=== PATIENT | female | born 1935 | race Caucasian/White ===

== ENCOUNTER 2016-08-25 10:31 | Emergency (ER) | payer MEDICARE, BC ==
--- NOTE | ~2016-08-25 | CR181 ---
[facility] A Service of [facility] RADIOLOGY TEXT RESULTS PATIENT: JAMIE PETERSON LOCATION: [facility] : 34 UNIT #: [id number] AGE: [address]: Mike Hwang MD SEX: F ORDER DR: [id number] [facility] [address] [place], [place] [address] [id number] E MR#: [id number] Acc #: [id number] NAME: JAMIE PETERSON : 1935 SEX: F STUDY DATE/TIME: 08/25/2016 11:32 UNIT: [facility] ROOM: STUDY DESCRIPTION: CR Lumbar Spine 2 or 3 Views Attending Physician: Mike Hwang M.D. Referring Physician: Chris Rodney M.D. Ordering Physician: Duke Andrew M.D. Primary Care Physician: Jesus Mora M.D. MEDICAL IMAGING REPORT This report is preliminary unless electronic signature is present EXAM Lumbar spine series. DATE OF EXAM 08/25/2016 HISTORY 81-year-old female in the ED complaining of low back pain radiating into the left hip. Symptoms present for about 7 weeks. TECHNIQUE 3 view lumbar spine series. FINDINGS The exam shows moderate chronic compression fracture deformity involving the L2 vertebral body. Remaining lumbar vertebrae are negative with no evidence of acute or chronic fracture. Mild degenerative disc space narrowing at L1-2 and L2-3. Mild lower lumbar degenerative facet arthropathy. Lumbar vertebral alignment is normal. IMPRESSION 1. Moderate chronic-appearing compression fracture deformity at L2. 2. No acute osseous abnormalities demonstrated. 3. Mild degenerative disc space changes at L1-2 and L2-3. Dictated by... Theo Cheney M.D. THIS IS AN ELECTRONICALLY VERIFIED REPORT Theo Cheney M.D. at 08/26/2016 5:55 AM HADLEY/aundrea TD: 08/25/2016 15:11 [facility] A Service of [facility] RADIOLOGY TEXT RESULTS PATIENT: JAMIE PETERSON [id number] 34 UNIT #: [id number] AGE: [address]: Mike Hwang MD SEX: F ORDER DR: JOB #: [id number] MEDICAL IMAGING REPORT COPY
[~2016-08-25 10:31] MED LIST: ADVAIR 250-501 EACH IN; ADVAIR INH; ALBUTEROL17 GM INH; AMLODIPINE BESYL5 MG PO; CALCIUM + D 6001 TA1 PO; CRESTOR5 MG PO; DARVOCET-N 1001 TAB PO; FOSAMAX PO; POSTURE600 MG PO; PREDNISONE PO; PREDNISONE5 M1 PO; PROVENTIL; TRAMADOL HCL50 M1 PO; TRILIPIX135 MG PO; VITAMIN D 4001 UDTAB PO; VITAMIN D31000 UNIT PO
[2016-08-25 11:59] LABS: URINE SOURCE CLEAN CATCH
[2016-08-25 12:05] LABS: URINE APPEARANCE CLEAR; URINE BILIRUBIN NEG (NEG); URINE BLOOD NEG (NEG); URINE COLOR YELLOW; URINE GLUCOSE NEG (NEG); URINE KETONE NEG (NEG); URINE LEUKOCYTE ESTERASE NEG (NEG); URINE NITRATE NEG (NEG); URINE PROTEIN NEG (NEG); URINE SPECIFIC GRAVITY 1.013 (1.003-1.035)
[2016-08-25 12:14] LABS: CULTURE INDICATED? NO
== END 2016-08-25 12:40 | disposition home or self-care (01) ==
LOC: CED 10:31
PROVIDERS: Emergency Medicine
DX: M48.56XA Collapsed vertebra, not elsewhere classified, lumbar region, initial encounter for fracture (principal); J45.909 Unspecified asthma, uncomplicated; I10 Essential (primary) hypertension; Z85.038 Personal history of other malignant neoplasm of large intestine; E78.5 Hyperlipidemia, unspecified; Z88.0 Allergy status to penicillin; Z88.2 Allergy status to sulfonamides; Z88.5 Allergy status to narcotic agent; Z88.8 Allergy status to other drugs, medicaments and biological substances
CPT/HCPCS: 72100; 81003; 99283

== ENCOUNTER → 2016-09-10 | Outpatient (CLI) | payer MEDICARE, BC ==
[~2016-09-10] MED LIST changes: +ALBUTEROL MININEB INH; +DIAZEPAM2 MG PO; +HYDROCODON-ACE1 EAC7 PO; +NORVASC PO; +PATIENT'S PHARMACY; +TRAVATAN Z5 ML OU; +TRUSOPT5 ML OS
--- NOTE | ~2016-09-10 | NM8 ---
[facility] A Service of [facility] & [facility] RADIOLOGY TEXT RESULTS PATIENT: JAMIE PETERSON LOCATION: [facility] : 34 UNIT #: [id number] AGE: [address]: Jesus Mora MD SEX: F ORDER DR: [id number] [facility] [address] [place], [place] [address] [id number] O MR#: [id number] Acc #: [id number] NAME: JAMIE PETERSON : 1935 SEX: F STUDY DATE/TIME: 09/10/2016 13:08 UNIT: [facility] ROOM: STUDY DESCRIPTION: NM Bone or Joint Whole Body Attending Physician: Jesus Mora M.D. Referring Physician: Jesus Mora M.D. Ordering Physician: Jesus Mora M.D. Primary Care Physician: Jesus Mora M.D. MEDICAL IMAGING REPORT This report is preliminary unless electronic signature is present EXAM Whole-body bone scan HISTORY 81-year-old female low back pain for 2 months. Remote history of colon cancer. COMPARISON CT abdomen and pelvis 12/01/2012 and lumbar spine films 08/25/2016. FINDINGS Whole-body and selected spot images were performed of the axial and appendicular skeleton following intravenous administration 24 mCi technetium 99m MDP. Examination demonstrates marked increased uptake within the L2 vertebral body corresponding to the patient's L2 compression fracture as noted on the radiographs of August 2016. This clearly represents a new fracture from the November 2012 CT scan. No other areas of abnormal uptake are identified to suggest additional fractures. Uptake within the remainder of the axial and appendicular skeleton appears symmetric. Bilateral renal activity and normal bladder activity noted. IMPRESSION Focally intense uptake at the L2 vertebral body corresponding to a biconcave L2 compression fracture. Dictated by... Anisa Barillas M.D. THIS IS AN ELECTRONICALLY VERIFIED REPORT Anisa Barillas M.D. at 09/12/2016 2:04 PM AB/jamie TD: 09/12/2016 06:41 [facility]. [facility] A Service of [facility] & [facility] RADIOLOGY TEXT RESULTS PATIENT: JAMIE PETERSON LOCATION: [facility] : 34 UNIT #: [id number] AGE: [address]: Jesus Mora MD SEX: F ORDER DR: JOB #: [id number] MEDICAL IMAGING REPORT COPY
== END | disposition home or self-care (01) ==
LOC: CNUC 09:14
DX: M51.37 Other intervertebral disc degeneration, lumbosacral region (principal); S32.029A Unspecified fracture of second lumbar vertebra, initial encounter for closed fracture; M54.5 Low back pain
CPT/HCPCS: 78306; A9503

== ENCOUNTER 2016-12-21 09:49 | Inpatient (IN) | payer MEDICARE, BC ==
--- NOTE | ~2016-12-21 | EKG ---
PATIENT: JAMIE PETERSON UNIT #: [id number] Ventricular Rate: 94 BPM Atrial Rate: 94 BPM P-R Interval: 102 ms QRS Duration: 64 ms Q-T Interval: 362 ms QTC Calculation(Bezet): 452 ms P [place]: 78 degrees Calculated R [place]: 76 degrees Calculated T [place]: 42 degrees Diagnosis Line: Sinus rhythm with short MT Diagnosis Line: Nonspecific ST and T wave abnormality Diagnosis Line: Abnormal ECG Diagnosis Line: When compared with ECG of 05-NOV-2011 11:11, Diagnosis Line: Nonspecific T wave abnormality now evident in Diagnosis Line: Inferior leads Diagnosis Line: Confirmed by DANISHA JOEL MD ([id number]) on Diagnosis Line: 12/22/2016 2:57:08 PM INTERPRETING : ELVA
--- NOTE | ~2016-12-21 | CR72 ---
[facility] A Service of [facility] RADIOLOGY TEXT RESULTS PATIENT: JAMIE PETERSON LOCATION: [place] [address] : 34 UNIT #: [id number] AGE: [address]: Emelia Joyner MD SEX: F ORDER DR: [id number] [facility] [address] [place], [place] [address] [id number] E MR#: [id number] Acc #: [id number] NAME: JAMIE PETERSON : 1935 SEX: F STUDY DATE/TIME: 12/21/2016 10:39 UNIT: [facility] ROOM: STUDY DESCRIPTION: CR Chest Single View Portable Attending Physician: Emilia Lind M.D. Ordering Physician: Emilia Lind M.D. Primary Care Physician: Jesus Mora M.D. MEDICAL IMAGING REPORT This report is preliminary unless electronic signature is present EXAM AP portable chest 12/21/2016 at 10:39 HISTORY 81-year-old female with right lower extremity pain after falling this morning. Preoperative evaluation. History of colon cancer, hypertension and asthma. COMPARISON PA and lateral chest radiograph 01/17/2015. FINDINGS Lungs are hyperinflated and emphysematous. Biapical pleural parenchymal thickening or scarring has a similar appears to prior exam. Reticular interstitial type thickening is seen predominately in the upper lung zones and appears slightly increased since the prior exam. There does appear to be mild bronchial wall thickening in the bilateral lungs. No pleural effusion. No pneumothorax. Osteopenia. IMPRESSION 1. Features of emphysema with chronic-appearing biapical pleural parenchymal scarring or fibrosis. 2. Interstitial markings predominantly in the upper lung zones appear increased since 01/17/2015, may represent evolving fibrosis. No focal lung consolidations are identified. Dictated by... Jacquelyn Stroud M.D. THIS IS AN ELECTRONICALLY VERIFIED REPORT Jacquelyn Stroud M.D. at 12/24/2016 8:36 AM [facility] A Service of [facility] RADIOLOGY TEXT RESULTS PATIENT: JAMIE PETERSON LOCATION: [facility] : 34 UNIT #: [id number] AGE: [address]: Emelia Joyner MD SEX: F ORDER DR: TRISHA/deloris TD: 12/21/2016 14:49 JOB #: [id number] MEDICAL IMAGING REPORT Page 1 of 1 COPY
--- NOTE | ~2016-12-21 | CR173 ---
[facility]. [facility] A Service of [facility] RADIOLOGY TEXT RESULTS PATIENT: JAMIE PETERSON LOCATION: [place] [address] : 34 UNIT #: [id number] AGE: [address]: Emelia Joyner MD SEX: F ORDER DR: [id number] [facility] [address] [place], [place] [address] [id number] E MR#: [id number] Acc #: [id number] NAME: JAMIE PETERSON : 1935 SEX: F STUDY DATE/TIME: 12/21/2016 10:49 UNIT: [facility] ROOM: STUDY DESCRIPTION: CR Knee 3 Views Rt Attending Physician: Emilia Lind M.D. Ordering Physician: Emilia Lind M.D. Primary Care Physician: Jesus Mora M.D. MEDICAL IMAGING REPORT This report is preliminary unless electronic signature is present EXAM Right knee 3 views INDICATIONS Right knee pain after falling today. No comparisons. FINDINGS The alignment is normal. No joint effusion. Osteopenia. No fracture. IMPRESSION Osteopenia. No acute finding. Dictated by... Paco Barillas M.D. THIS IS AN ELECTRONICALLY VERIFIED REPORT Paco Barillas M.D. at 12/24/2016 7:32 AM VENKATA/amor TD: 12/21/2016 14:45 JOB #: [id number] MEDICAL IMAGING REPORT Page 1 of 1 COPY
--- NOTE | ~2016-12-21 | CR21 ---
[facility] A Service of [facility] & [facility] RADIOLOGY TEXT RESULTS PATIENT: JAMIE PETERSON LOCATION: [place] [address] : 34 UNIT #: [id number] AGE: [address]: Emelia Joyner MD SEX: F ORDER DR: [id number] [facility] [address] [place], [place] [address] [id number] E MR#: [id number] Acc #: [id number] NAME: JAMIE PETERSON : 1935 SEX: F STUDY DATE/TIME: 12/21/2016 10:46 UNIT: [facility] ROOM: STUDY DESCRIPTION: CR Ankle Min 3 Views Rt Attending Physician: Emilia Lind M.D. Ordering Physician: Emilia Lind M.D. Primary Care Physician: Jesus Mora M.D. MEDICAL IMAGING REPORT This report is preliminary unless electronic signature is present EXAM Right ankle 3 views INDICATION Right ankle pain today. Trauma. COMPARISON No comparisons. FINDINGS Osteopenia. No evidence for fracture. No dislocation. Soft tissue structures are unremarkable. IMPRESSION Osteopenia. No evidence for fracture. Dictated by... Paco Barillas M.D. THIS IS AN ELECTRONICALLY VERIFIED REPORT Paco Barillas M.D. at 12/24/2016 7:32 AM Adrienne TD: 12/21/2016 14:42 JOB #: [id number] MEDICAL IMAGING REPORT Page 1 of 1 COPY
--- NOTE | ~2016-12-21 | CT107 ---
[facility] A Service [facility] RADIOLOGY TEXT RESULTS PATIENT: JAMIE PETERSON LOCATION: [facility] : 34 UNIT #: [id number] AGE: [address]: Emelia Joyner MD SEX: F ORDER DR: [id number] [place] [id number] [facility]. [place], [place] [address] [id number] I MR#: [id number] Acc #: [id number] NAME: JAMIE PETERSON : 1935 SEX: F STUDY DATE/TIME: 12/21/2016 15:14 UNIT: [facility] ROOM: [facility] STUDY DESCRIPTION: CT Pelvis Wo Cont Attending Physician: Julita Lua M.D. Ordering Physician: Emilia Lind M.D. Primary Care Physician: Jesus Mora M.D. MEDICAL IMAGING REPORT This report is preliminary unless electronic signature is present EXAM CT of the pelvis without contrast. HISTORY Right hip pain status post fall. A 1-day duration. TECHNIQUE Coronal and sagittal reconstructions were obtained. This CT exam was performed with one or more of the following radiation dose reduction techniques: automatic exposure control, adjustment of mA and/or kV according to patient size, and iterative reconstruction. COMPARISON Right hip radiograph dated 12/21/2016. FINDINGS There is a nondisplaced fracture involving the greater trochanter. The transverse fracture does not appear to extend into the femoral neck. No additional fractures are identified. There is some degenerative changes in both hips. Generalized osteopenia. There is some colonic diverticulosis. No diverticulitis. No enlarged pelvic or inguinal lymph nodes. IMPRESSION Nondisplaced transverse fracture through the greater trochanter of the right proximal femur. Dictated by... [facility] A Service [facility] RADIOLOGY TEXT RESULTS PATIENT: JAMIE PETERSON LOCATION: [facility] : 34 UNIT #: [id number] AGE: [address]: Emelia Joyner MD SEX: F ORDER DR: Santiago Fontenot M.D. THIS IS AN ELECTRONICALLY VERIFIED REPORT Santiago Fontenot M.D. at 12/24/2016 3:01 PM MAHAMED/james TD: 12/21/2016 22:40 JOB #: [id number] MEDICAL IMAGING REPORT Page 1 of 1 COPY
--- NOTE | ~2016-12-21 | HP ---
Unit #: [id number] #: [id number] Patient: JAMIE PETERSON [id number] [address] [place], [place] [address] [id number] I MR#: [id number] NAME: JAMIE PETERSON ROOM: [facility] Age: 81 Sex: F Admission Date: 12/21/2016 : 1935 Attending Physician: Julita Lua M.D. Primary Care Physician: Jesus Mora M.D. HISTORY AND PHYSICAL CHIEF COMPLAINT Fall, right hip pain. HISTORY OF PRESENT ILLNESS The patient is an 81-year-old female with past medical history of hyperlipidemia, colon cancer, asthma, who presented to the emergency department for evaluation of the above. The patient states that she was in her usual state of health until the morning of admission when she fell. She states that the fall occurred around 4:45. She states that she was trying to turn on a light and "lost balance." She does not think she hit her head. No loss of consciousness. She scooted to a chair and ultimately to the bathroom. She then got back in bed, went to sleep and woke up around 8 a.m. with persistent right hip pain. She was brought to the emergency department for further evaluation. In the emergency department, CT of the right hip showed a fracture involving the right greater trochanter. A right tibia fibula x-ray showed possible buckle injury involving the right tibia. She was given 2 mg of morphine as well as 4 mg of Zofran. She is being admitted to [facility] for evaluation and further treatment. PAST MEDICAL HISTORY 1. Admission to [facility] 09/08 through 09/10/2005 for acute bronchitis. 2. Asthma, not on home oxygen and not followed by a airveyor operator. 3. Colon cancer, status post right hemicolectomy. The patient has not had radiation or chemotherapy. 4. Hyperlipidemia. PAST SURGICAL HISTORY 1. Right hemicolectomy. 2. Eye surgery. ALLERGIES 1. Penicillin. 2. Sulfa. 3. Statins. 4. Codeine. 5. Gemfibrozil. 6. Mushrooms. HOME MEDICATIONS 1. Albuterol two puffs t.i.d. Unit #: [id number] #: [id number] Patient: JAMIE PETERSON 2. Travatan eye drops h.s. 3. Dorzolamide eye drops t.i.d. 4. Norvasc 5 mg daily. 5. Hydrocodone/acetaminophen 5/325 b.i.d. p.r.n. 6. Diazepam 2 mg t.i.d. p.r.n. SOCIAL HISTORY The patient lives alone. She has no children. Her only relative is a cousin. She has a cane. She denies tobacco or alcohol use. Her CODE STATUS is a DO NOT RESUSCITATE. FAMILY HISTORY Notable for her mother having asthma. Her father of a myocardial infarction at the age of 56. REVIEW OF SYSTEMS A complete review of systems is negative except as indicated in the HPI. The patient states that she has maintained her weight. PHYSICAL EXAMINATION VITAL SIGNS: Temperature 98.1, pulse 99, respirations 16, blood pressure 144/58, oxygen saturation 99% on room air. GENERAL: The patient is a frail-appearing female in no acute distress. HEENT: Head is atraumatic. Mucous membranes are moist. NECK: Supple. Trachea is midline. LUNGS: Clear to auscultation bilaterally with no increased work of breathing. HEART: Regular rate and rhythm. ABDOMEN: Soft, nontender. Bowel sounds present in all four quadrants. EXTREMITIES: Right hip is tender to palpation. She has decreased range of motion of the right lower extremity secondary to pain. There is no pedal edema. NEUROLOGIC: Patient is awake and alert. She follows commands. PSYCHIATRIC: Mood and affect are normal. Patient is cooperative. SKIN OF EXAMINED AREAS: Warm and dry. DIAGNOSTIC STUDIES LABORATORY: Comprehensive metabolic panel is completely normal. INR is 1. Complete blood count is notable for white blood cell count of 12.5. IMAGING: Right tibia fibula x-ray shows subtle cortical irregularity of the posterior margin of the distal right tibia concerning for possible nondisplaced cortical buckle injury. Right hip x-ray shows no acute findings. Right femur x-ray shows on fracture. Chest x-ray shows features of emphysema. Right knee x-ray shows no acute findings. Right ankle x-ray shows osteopenia but no fracture. CT of the right hip shows a fracture of the right greater trochanter. CARDIOVASCULAR: EKG shows sinus rhythm with a short MS at a rate of 94 Unit #: [id number] #: [id number] Patient: JAMIE PETERSON beats per minute. ST depression is noted in lateral leads. ASSESSMENT The patient is an 81-year-old female with: 1. Fracture of the right greater trochanter. The patient is low risk for surgery based on the information available. She has never had a stress test, never had a cardiac catheterization. There is no echocardiogram in [facility]. Her EKG does show ST depression in lateral leads. She denies any chest pain. 2. Cortical irregularity of the right tibia concerning for possible buckle injury. 3. Status post fall. 4. Leukocytosis, likely stress related. 5. History of colon cancer, status post partial hemicolectomy. 6. Hyperlipidemia. 7. Asthma. 8. Hypertension. 9. Malnutrition with a BMI of 13. PLAN 1. Admit to intermediate level. 2. Regular diet. 3. N.p.o. after midnight for possible surgical intervention. 4. Consult Dr. Lord regarding fracture of the right greater trochanter as well as cortical irregularity of the right tibia. 5. P.r.n. morphine. 6. P.r.n. Zofran. 7. Bedrest. 8. Fall precautions. 9. Melchor catheter. 10. Urinalysis. 11. Consult Dr. Morrison for cardiac clearance. 12. Check urinalysis. 13. CPK on blood in the lab. 14. Supplemental oxygen. 15. Repeat labs in the morning. 16. Regarding CODE STATUS, the patient is a DO NOT RESUSCITATE. Dictated by Julita Lua M.D. DILEEP/makenzie TD: 12/21/2016 20:32 JOB #: [id number] Unit #: [id number] #: [id number] Patient: JAMIE PETERSON HISTORY AND PHYSICAL Page 1 of 1 X Julita Lua MD HISTORY AND PHYSICAL
--- NOTE | ~2016-12-21 | CR107 ---
[facility] A Service of [facility] RADIOLOGY TEXT RESULTS PATIENT: JAMIE PETERSON LOCATION: [place] [address] : 34 UNIT #: [id number] AGE: [address]: Emelia Joyner MD SEX: F ORDER DR: [id number] [facility] [address] [place], [place] [address] [id number] E MR#: [id number] Acc #: [id number] NAME: JAMIE PETERSON : 1935 SEX: F STUDY DATE/TIME: 12/21/2016 10:43 UNIT: [facility] ROOM: STUDY DESCRIPTION: CR Femur 2 Views Rt Attending Physician: Emilia Lind M.D. Ordering Physician: Emilia Lind M.D. Primary Care Physician: Jessu Mora M.D. MEDICAL IMAGING REPORT This report is preliminary unless electronic signature is present EXAM Right femur, 2 views. INDICATIONS Right femur pain today after falling. COMPARISON No comparisons. FINDINGS Osteopenia. No evidence for fracture or dislocation. Vascular calcifications. IMPRESSION No fracture or dislocation. Dictated by... Paco Barillas M.D. THIS IS AN ELECTRONICALLY VERIFIED REPORT Paco Barillas M.D. at 12/24/2016 7:32 AM Dayana TD: 12/21/2016 14:55 JOB #: [id number] MEDICAL IMAGING REPORT Page 1 of 1 COPY
--- NOTE | ~2016-12-21 | DS ---
Unit #: [id number] #: [id number] Patient: JAMIE PETERSON [id number] [place] [id number] [facility]. [place], [place] [address] [id number] I MR#: [id number] NAME: JAMIE PETERSON ROOM: 470 Age: 81 Sex: F Admission Date: 12/21/2016 : 1935 Discharge Date: 12/24/2016 Attending Physician: Emelia Joyner M.D. Primary Care Physician: Jesus Mora M.D. DISCHARGE SUMMARY ADMISSION DIAGNOSIS Right hip fracture. DISCHARGE DIAGNOSES 1. Right greater trochanteric fracture, nondisplaced. 2. Bronchial asthma. 3. History of colon cancer, status post right hemicolectomy. 4. Hyperlipidemia. 5. Hypertension. 6. Anxiety disorder. CONSULTANTS Dr. Lord in orthopedic consultation. DIAGNOSTIC DATA LABORATORY: Creatinine 0.8, sodium 132, potassium 4.3. White blood cell count 7.5, hemoglobin 10.6, platelet count 189. Urinalysis was negative. Blood culture did not reveal any growth. IMAGING: Chest x-ray did not reveal any acute findings. The patient has increased interstitial markings, which may represent evolving fibrosis. Right ankle x-ray revealed osteopenia. No evidence of fracture. Right knee x-ray revealed osteopenia. No fracture. Right femur x-ray did not reveal any fracture. Right tibia and fibula x-ray revealed no discrete fracture line. Right hip x-ray did not reveal any acute findings. CT scan of the pelvis was done, which revealed nondisplaced transverse fracture through the greater trochanter right proximal femur. HOSPITAL COURSE The patient is an 81-year-old female who was admitted to [facility] with right hip pain. Details are as per admission history and physical. The patient's x-ray was negative for fracture, but CT scan of the pelvis revealed right greater trochanter fracture. The patient was seen by Dr. Porter in consultation, who stated that the patient does not need any surgery. Also, he advised weightbearing as tolerated with a walker. Unit #: [id number] #: [id number] Patient: JAMIE PETERSON PHYSICAL EXAMINATION GENERAL: Today the patient is comfortable and is not in any acute distress. She wants to go to rehab. VITALS: Temperature 97.8, pulse 93 per minute, respiratory rate 16 per minute, blood pressure 114/43. HEENT: No conjunctival congestion. Sclerae nonicteric. NECK: Supple. Trachea central. RESPIRATORY: Decreased breath sounds bilaterally. There are no wheezes or crackles. HEART: Regular rate and rhythm. S1 and S2. ABDOMEN: Soft, nontender, bowel sounds present in all four quadrants. EXTREMITIES: Trace pedal edema. SKIN: Warm and dry. DISCHARGE CONDITION Stable. ACTIVITY As tolerated. DISCHARGE MEDICATIONS 1. Albuterol MDI 2 puffs t.i.d. 2. Norvasc 5 mg p.o. daily. 3. Travatan eyedrops 1 drop at nighttime. 4. Trusopt 1 drop t.i.d. 5. Hydrocodone 5 mg 1 p.o. q.4 h. p.r.n. pain. DISPOSITION The patient will be transferred to senior living unit. FOLLOWUP The patient will follow up with Dr. Lord in two weeks. A prescription for hydrocodone was written. Than plan has been discussed with the patient's family. Dictated by... Annika Chong/kasi TD: 12/24/2016 12:12 JOB #: [id number] CC: Annika Whitt M.D. Unit #: [id number] #: [id number] Patient: JAMIE PETERSON DMITRIY DISCHARGE SUMMARY Page 1 of 1 X Emelia Joyner MD X DISCHARGE SUMMARY
--- NOTE | ~2016-12-21 | CR253 ---
[facility] A Service of [facility] RADIOLOGY TEXT RESULTS PATIENT: JAMIE PETERSON LOCATION: [place] [address] : 34 UNIT #: [id number] AGE: [address]: Emelia Joyner MD SEX: F ORDER DR: [id number] [facility] [address] [facility] [place] [facility]. [place], [place] [address] [id number] E MR#: [id number] Acc #: [id number] NAME: JAMIE PETERSON : 1935 SEX: F STUDY DATE/TIME: 12/21/2016 10:45 UNIT: [facility] ROOM: STUDY DESCRIPTION: CR Tibia and Fibula 2 Views Rt Attending Physician: Emilia Lind M.D. Ordering Physician: Emilia Lind M.D. Primary Care Physician: Jesus Mora M.D. MEDICAL IMAGING REPORT This report is preliminary unless electronic signature is present EXAM 2 views of the right tibia and fibula 12/21/2016 HISTORY Right lower extremity pain after falling this morning. History of colon cancer. COMPARISON None. FINDINGS There is subtle cortical irregularity involving the posterior margin of the distal right tibial metaphysis which could represent a nondisplaced fracture. No discrete or lucent fracture line is seen at this location, however. The knee and ankle joints appear appropriately aligned. Benign cystic changes seen within the lateral malleolus. Advanced osteopenia. IMPRESSION 1. Subtle cortical irregularity of the posterior margin of the distal right tibial diametaphysis could represent subtle nondisplaced cortical buckle injury. No discrete fracture line is visible, however. Please correlate to the site of patient's pain. 2. Normal alignment of the knee and ankle joints. 3. Osteopenia. Dictated by... Jacquelyn Stroud M.D. THIS IS AN ELECTRONICALLY VERIFIED REPORT Jacquelyn Stroud M.D. at 12/24/2016 8:36 AM LL/deloris [facility] A Service [facility] RADIOLOGY TEXT RESULTS PATIENT: JAMIE PETERSON LOCATION: [facility] 470- : 34 UNIT #: [id number] AGE: [address]: Emelia Joyner MD SEX: F ORDER DR: TD: 12/21/2016 14:55 JOB #: [id number] MEDICAL IMAGING REPORT Page 1 of 1 COPY
--- NOTE | ~2016-12-21 | CR151 ---
[facility] A Service of [facility] RADIOLOGY TEXT RESULTS PATIENT: JAMIE PETERSON LOCATION: [facility] 470-01 : 34 UNIT #: [id number] AGE: [address]: Emelia Joyner MD SEX: F ORDER DR: [id number] [facility] [address] [facility]. [place], [place] [address] [id number] E MR#: [id number] Acc #: [id number] NAME: JAMIE PETERSON : 1935 SEX: F STUDY DATE/TIME: 12/21/2016 10:41 UNIT: [facility] ROOM: STUDY DESCRIPTION: CR Hip Min 2 Views Rt Attending Physician: Emilia Lind M.D. Ordering Physician: Emilia Lind M.D. Primary Care Physician: Jesus Mora M.D. MEDICAL IMAGING REPORT This report is preliminary unless electronic signature is present EXAM AP pelvis with frog view right hip (2 images). DATE: 12/21/2016 HISTORY Fell this morning with right lower extremity pain. COMPARISON AP pelvis 01/17/2015 FINDINGS No acute pelvic fracture, hip fracture or hip dislocation is seen. There is mild asymmetric bilateral hip joint space narrowing without significant osteophyte formation. No sacroiliac joint or pubic symphysis diastasis is seen. Osteopenic changes are present. Chain sutures are seen within the right lower abdomen. Presumed granulomatous changes within the imaged liver. IMPRESSION 1. No acute findings within the pelvis or right hip. 2. Mild but symmetric bilateral hip joint space narrowing. Dictated by... Jacquelyn Stroud M.D. THIS IS AN ELECTRONICALLY VERIFIED REPORT Jacquelyn Stroud M.D. at 12/24/2016 8:36 AM LL/amor TD: 12/21/2016 15:01 JOB #: [id number] [facility] A Service of [facility] RADIOLOGY TEXT RESULTS PATIENT: JAMIE PETERSON LOCATION: [facility] 470-01 : 34 UNIT #: [id number] AGE: [address]: Emelia Joyner MD SEX: F ORDER DR: MEDICAL IMAGING REPORT Page 1 of 1 COPY
--- NOTE | ~2016-12-21 | A ---
[facility] Nutrition Therapy DATE: 12/22/16 Patient: JAMIE PETERSON Physician: MO Address: [address] [place] [address] Room/Bed: [address] [place] [address], Zip: [place] [address] Admit Date: 12/21/16 Date of : 34 Height: 5 0 Weight: 70 31.75 NUTRITIONAL ASSESSMENT: REASON: Low BMI 81 yo female admitted for fall and right hip pain PMH: HLD, colon cancer s/p right marco-colectomy, asthma Anthropometrics: Ht: 4'11" Wt: 31.75 kg bmi: 13.7 IBW: 45.4 kg, 70% IBW Labs: Na+ 134 K+ 5.2 Cl- 98 Alb 3.3 Meds: Zofran, NaCl I/O & Bowel function: 0/200, last BM 12/21 Skin Integrity: Discolored BUE Scab right hyman Left great toe blanchable redness Edema: noone noted Estimated Nutrition Needs: Increased due to low body weight Diet: Regular Assessment: Chart reviewed, events noted. RD spoke with the pt at bedside regarding her low body weight. Pt reports that she has always been 65-70#. Pt states that she was 5'0"; however, she has likely "shrank". Pt has a small body frame, likely short than 5'0" per RD observation. Pt and RN both report that she has had a great appetite, and consumes 100% of her meals. Pt does not like Ensure supplements, but is agreeable to Magic Cup for supplemental nutrition. RD will order. Dx: Underweight RT advanced age, small body frame AEB pt reported UBW of 65-70# and no recent weight loss, 70% IBW, BMI 13.7. Intervention: 1. Continue regular diet 2. Magic Cup BID Monitoring, Evaluation and Goals: 1. Oral intake; tolerate >50-75% of meals and supplements 2. Weight; monitor, promote gradual weight loss [facility] Nutrition Therapy DATE: 12/22/16 Patient: JAMIE PETERSON Physician: MO Address: [address] [place] [address] Room/Bed: [address] [place] [address], Zip: [place] [address] Admit Date: 12/21/16 Date of : 34 Height: 5 0 Weight: 70 31.75 Recommendations: 1. Continue regular diet as tolerated. 2. Magic Cup (vanilla) BID-TID for supplemental nutrition. Pt is at mild nutritional risk. RD will follow hospital course per protocol. Respectfully, NANCI JIMENEZ RD, LD [employer] and [facility] cc: client file
--- NOTE | ~2016-12-21 | CO ---
Unit #: [id number] #: [id number] Patient: JAMIE PETERSON [id number] [place] [id number] [facility]. [place], [place] [address] [id number] MR#: [id number] NAME: JAMIE PETERSON ROOM: 470 Age: 81 Sex: F Admission Date: 12/21/2016 : 1935 Attending Physician: Emelia Joyner M.D. Primary Care Physician: Jesus Mora M.D. Consultation Date: 12/22/2016 CONSULTATION REPORT HISTORY OF PRESENT ILLNESS Ms. Peterson is an 81-year-old lady, who lives at home alone and she fell, she was getting up to go to the restroom, and she is not sure she tripped over something, or just lost her balance. She denies a syncopal or loss of consciousness episode. She landed on her right side, had difficulty getting up, was brought to the emergency room, and x-rays were negative but CT scan shows a nondisplaced fracture in the greater trochanter on the right side. We have been asked to provide orthopedic recommendations. PAST MEDICAL HISTORY Significant for elevated cholesterol. Her medical conditions include asthma and colon cancer. PAST SURGICAL HISTORY She had surgery for her colon cancer about 10 years ago. SOCIAL HISTORY She socially lives at home alone. Denies use of tobacco or alcohol. She has other surgery includes eye surgery. ALLERGIES She has allergies to multiple antibiotics. She cannot use penicillin, sulfa. She cannot take statins, codeine, gemfibrozil, and mushrooms. MEDICATIONS Her only home medications are Valium, Vicodin, Norvasc for her hypertension, Travatan eye drops, albuterol for her asthma, and dorzolamide eye drops. REVIEW OF SYSTEMS A complete 12-system review was performed and is positive only for that in the history of present illness. PHYSICAL EXAMINATION GENERAL: She is alert, awake, and oriented x3. Does not appear to be in any distress. She is afebrile. VITAL SIGNS: Her pulse is 100 and her blood pressure 119/42. ORTHOPEDIC: Her extremities move well. Lower extremities left hip moves well, right hip is tender laterally, and there was some discomfort with range of motion of the hip but not severe. NEUROVASCULAR: Intact. There was no erythema noted. Unit #: [id number] #: [id number] Patient: JAMIE PETERSON DMITRIY IMPRESSION She has an acute nondisplaced greater trochanteric fracture. We will have physical therapy to see her, and she will probably need to go to rehab for a week or so because she lives alone. Dictated by... Annika Ratliff/vicente TD: 12/22/2016 22:22 JOB #: [id number] CONSULTATION REPORT Page 1 of 1 X [place] MD X CONSULTATION REPORT
[~2016-12-21 09:49] MED LIST changes: -ALBUTEROL MININEB INH; -DIAZEPAM2 MG PO; -HYDROCODON-ACE1 EAC7 PO; -NORVASC PO; -PATIENT'S PHARMACY; -TRAVATAN Z5 ML OU; -TRUSOPT5 ML OS
[2016-12-21] MEDS ORDERED: PATIENT'S PHARMACY (11:17)
[2016-12-21] MEDS ORDERED: ALBUTEROL MININEB INH (11:17)
[2016-12-21] MEDS ORDERED: NORVASC PO (11:18)
[2016-12-21] MEDS ORDERED: TRUSOPT5 ML OS (11:18)
[2016-12-21] MEDS ORDERED: TRAVATAN Z5 ML OU (11:18)
[2016-12-21] MEDS ORDERED: DIAZEPAM2 MG PO (11:19)
[2016-12-21] MEDS ORDERED: HYDROCODON-ACE1 EAC7 PO (11:19)
[2016-12-21 11:30] LABS: BASOPHIL# 0.1 X10e3 (0-0.3); BASOPHIL% 0.4 % (0-2.5); EOSINOPHIL# 0.3 X10e3 (0-0.7); EOSINOPHIL% 2.7 % (0.0-7.0); HEMATOCRIT 36.3 % (35.0-45.0); HEMOGLOBIN 11.7 gm/dL (12.0-16.0); LYMPHOCYTE# 1.4 X10e3 (1.0-3.5); LYMPHOCYTE% 11.6 % (17.0-45.0); MEAN CORPUSCULAR HEMOGLOBIN 26.6 PG (28-34); MEAN CORPUSCULAR HGB CONC 32.1 g/dL (30-36); MEAN PLATELET VOLUME 7.7 FL (6.5-11.5); MONOCYTE# 0.9 X10e3 (0-1.0); NEUTROPHIL# 9.8 X10e3 (1.5-7.1); NEUTROPHIL% 78.3 % (40-75); PLATELET COUNT 255 X10e3 (140-420); RED BLOOD COUNT 4.38 X10e (3.90-5.30); RED CELL DISTRIBUTION WIDTH 13.7 % (11.0-15.5); WHITE BLOOD COUNT 12.5 X10e3 (4.0-10.5)
[2016-12-21 11:32] LABS: DIFF IND NO
[2016-12-21 11:49] LABS: PARTIAL THROMBOPLASTIN TIME 22.9 SECONDS (23.5-31.3); PROTHROMBIN TIME (PATIENT) 10.9 SECONDS (10.0-11.7)
[2016-12-21 12:03] LABS: ALBUMIN SERUM 3.7 g/dL (3.5-5.0); BILIRUBIN, DIRECT 0.1 mg/dL (0.0-0.2); BILIRUBIN,INDIRECT 0.4 mg/dL (0.0-0.9); BILIRUBIN,TOTAL 0.5 mg/dL (0.2-2.0); BUN/CREATININE RATIO 12.85; CALCIUM SERUM 8.9 mg/dL (8.4-10.2); CREATININE SERUM 0.7 mg/dL (0.6-1.4); GLOM FILT RATE Estimated 80.7 mL/min (>60); POTASSIUM 4.5 mmol/L (3.5-5.1); PROTEIN TOTAL SERUM 6.7 g/dL (6.0-8.3)
[2016-12-21 18:56] LABS: URINE SOURCE CLEAN CATCH
[2016-12-21 19:05] LABS: URINE APPEARANCE CLEAR; URINE BILIRUBIN NEG (NEG); URINE BLOOD NEG (NEG); URINE COLOR YELLOW; URINE GLUCOSE NEG (NEG); URINE KETONE NEG (NEG); URINE LEUKOCYTE ESTERASE NEG (NEG); URINE NITRATE NEG (NEG); URINE PH 6.5 (5-8); URINE PROTEIN NEG (NEG); URINE SPECIFIC GRAVITY 1.014 (1.003-1.035); URINE UROBILINOGEN 0.2 MG/DL (NEG)
[2016-12-21 19:14] LABS: CULTURE INDICATED? NO
[2016-12-22 07:12] LABS: BASOPHIL% 0.5 % (0-2.5); EOSINOPHIL# 0.3 X10e3 (0-0.7); EOSINOPHIL% 3.8 % (0.0-7.0); HEMATOCRIT 33.3 % (35.0-45.0); HEMOGLOBIN 10.9 gm/dL (12.0-16.0); LYMPHOCYTE# 1.5 X10e3 (1.0-3.5); LYMPHOCYTE% 17.1 % (17.0-45.0); MEAN CORPUSCULAR HEMOGLOBIN 27.1 PG (28-34); MEAN CORPUSCULAR HGB CONC 32.7 g/dL (30-36); MEAN PLATELET VOLUME 7.8 FL (6.5-11.5); MONOCYTE# 0.8 X10e3 (0-1.0); MONOCYTE% 9.3 % (3.0-12.0); NEUTROPHIL# 6.1 X10e3 (1.5-7.1); NEUTROPHIL% 69.3 % (40-75); PLATELET COUNT 219 X10e3 (140-420); RED BLOOD COUNT 4.01 X10e (3.90-5.30); RED CELL DISTRIBUTION WIDTH 13.4 % (11.0-15.5); WHITE BLOOD COUNT 8.8 X10e3 (4.0-10.5)
[2016-12-22 07:18] LABS: DIFF IND NO
[2016-12-22 07:23] LABS: INR 1.1; PROTHROMBIN TIME (PATIENT) 11.4 SECONDS (10.0-11.7)
[2016-12-22 07:46] LABS: ALBUMIN SERUM 3.3 g/dL (3.5-5.0); BILIRUBIN,TOTAL 0.7 mg/dL (0.2-2.0); BUN/CREATININE RATIO 17.5; CALCIUM SERUM 8.4 mg/dL (8.4-10.2); CREATININE SERUM 0.8 mg/dL (0.6-1.4); GLOM FILT RATE Estimated 68.7 mL/min (>60); POTASSIUM 5.2 mmol/L (3.5-5.1); PROTEIN TOTAL SERUM 6.3 g/dL (6.0-8.3)
[2016-12-23 03:18] LABS: HEMATOCRIT 33.7 % (35.0-45.0); HEMOGLOBIN 10.6 gm/dL (12.0-16.0); MEAN CELL VOLUME 84.4 FL (83-96); MEAN CORPUSCULAR HEMOGLOBIN 26.6 PG (28-34); MEAN CORPUSCULAR HGB CONC 31.6 g/dL (30-36); MEAN PLATELET VOLUME 7.9 FL (6.5-11.5); RED BLOOD COUNT 3.99 X10e (3.90-5.30); RED CELL DISTRIBUTION WIDTH 13.7 % (11.0-15.5); WHITE BLOOD COUNT 7.5 X10e3 (4.0-10.5)
[2016-12-23 03:32] LABS: BUN/CREATININE RATIO 18.75; CALCIUM SERUM 8.2 mg/dL (8.4-10.2); CREATININE SERUM 0.8 mg/dL (0.6-1.4); GLOM FILT RATE Estimated 68.7 mL/min (>60); POTASSIUM 4.3 mmol/L (3.5-5.1)
== END 2016-12-24 17:18 | DRG 536 ==
LOC: CED 09:49 → C4C 17:40 → CED 18:56 → C4C 18:56
PROVIDERS: Emergency Medicine; Family Medicine; Internal Medicine
DX: S72.114A Nondisplaced fracture of greater trochanter of right femur, initial encounter for closed fracture (principal); E46 Unspecified protein-calorie malnutrition; Z68.1 Body mass index [BMI] 19.9 or less, adult; W18.30XA Fall on same level, unspecified, initial encounter; Y92.009 Unspecified place in unspecified non-institutional (private) residence as the place of occurrence of the external cause; J45.909 Unspecified asthma, uncomplicated; E78.5 Hyperlipidemia, unspecified; I10 Essential (primary) hypertension; F41.9 Anxiety disorder, unspecified; S89.81XA Other specified injuries of right lower leg, initial encounter; E87.6 Hypokalemia; Z66 Do not resuscitate; Z85.038 Personal history of other malignant neoplasm of large intestine; Z90.49 Acquired absence of other specified parts of digestive tract; Z88.5 Allergy status to narcotic agent; Z88.0 Allergy status to penicillin; Z88.2 Allergy status to sulfonamides; Z88.8 Allergy status to other drugs, medicaments and biological substances; Z91.018 Allergy to other foods; Z82.5 Family history of asthma and other chronic lower respiratory diseases; Z82.49 Family history of ischemic heart disease and other diseases of the circulatory system
CPT/HCPCS: 36415; 71010; 72192; 73502; 73552; 73562; 73590; 73610; 80048; 80053; 80076; 81003; 82550; 85025; 85027; 85610; 85730; 87040; 93005; 94640; 94664; 94760; 96374; 97110; 97116; 97161; 97530; 99285; G8978-GP; G8979-GP; J2270; J2405